=== PATIENT | female | born 1970 | race African-American/Black ===

== ENCOUNTER → 2020-03-09 | Outpatient (CLI) | payer OTHER ==
--- NOTE | 2020-03-09 10:30 | RAD ---
EXAM: Lumbar spine, 3 views. HISTORY: Pain. COMPARISON: None. FINDINGS: 3 views of the lumbar spine are obtained. There is no listhesis. The vertebral bodies are normal in height. The disc spaces are preserved. IMPRESSION: No acute osseous finding. Electronically signed by: Suzy Rios MD (03/09/2020 10:27 AM) [facility] [place]
--- NOTE | 2020-03-09 10:30 | RAD ---
EXAM: Right knee, 2 views. HISTORY: Pain. COMPARISON: None. FINDINGS: 2 views the right knee are obtained. There is no fracture, dislocation or subluxation. There is no effusion. IMPRESSION: No acute osseous finding. Electronically signed by: Suzy Rios MD (03/09/2020 10:27 AM) [facility]
== END | disposition home or self-care (01) ==
LOC: DXRAD 09:50
PROVIDERS: ATTEND Family Medicine
DX: M54.5 Low back pain (principal); M25.561 Pain in right knee
CPT/HCPCS: 72100; 73560

== ENCOUNTER 2021-11-18 16:06 | Emergency (ER) | payer OTHER, MEDICAID ==
[~2021-11-18] VITALS: Ht 160 cm; Wt 79.5 kg
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
[2021-11-18] MEDS ORDERED: CYCL5TAB PO (17:12)
== END 2021-11-18 17:35 | disposition home or self-care (01) ==
LOC: ER 16:06
DX: S80.212A Abrasion, left knee, initial encounter (principal); R51.9 Headache, unspecified; M54.2 Cervicalgia; R07.2 Precordial pain; M19.90 Unspecified osteoarthritis, unspecified site; M79.7 Fibromyalgia; I10 Essential (primary) hypertension; Z88.2 Allergy status to sulfonamides; Z88.1 Allergy status to other antibiotic agents; Z88.5 Allergy status to narcotic agent; Z88.8 Allergy status to other drugs, medicaments and biological substances; V89.2XXA Person injured in unspecified motor-vehicle accident, traffic, initial encounter; Y93.I9 Activity, other involving external motion; Y92.89 Other specified places as the place of occurrence of the external cause; Y99.8 Other external cause status
CPT/HCPCS: 70450; 71045; 72125; 73562; 99284